=== PATIENT | male | born 1930 | race Caucasian/White ===

== ENCOUNTER 2018-01-24 08:22 | Inpatient (IN) | payer OTHER ==
[~2018-01-24] VITALS: Ht 165.1 cm; Wt 72.4 kg
--- NOTE | ~2018-01-24 | EKG ---
[facility] [place] [address] ELECTROCARDIOGRAM REPORT Name: ERICK HENDERSON Room #: 202-P ADM IN M.R.#: [id number] Admission: 01/24/18 Attend Phys: John Thorne MD Discharge: Date of : [birth year] Report #: [id number] THIS REPORT FOR: //name// [facility] ED Test Date: 2018-01-24 Test Time: 08:28:13 Pat Name: ERICK HENDERSON Department: Room: Gender: M Tarper: AT : 1930 Requested By: Krystin Coyle Order Number: [id number] MD: Kaleb Chan Measurements Intervals Ayer Rate: 59 P: -17 IN: 274 QRS: -1 QRSD: 110 T: 69 QT: 430 QTc: 426 Interpretive Statements Sinus rhythm Prolonged IN interval Compared to ECG 07/09/2008 08:49:27 First degree AV block now present T-wave abnormality no longer present Electronically Signed On 01-25-2018 8:38:11 CDT by Kaleb Chan [email or web address] <ELECTRONICALLY SIGNED> By: Kaleb Chan MD, [facility] 07/12/08 [phone] Kaleb Chan MD, [facility] /EPI
[2018-01-24 08:23] VITALS: BP 184/62
[2018-01-24 09:00] LABS: ABSOLUTE NEUTROPHILS 2.9 thou/uL (1.4-8.2); EOSINOPHILS 3.2 % (0.0-3.0); HEMATOCRIT 26.9 % (42.0-52.0); HEMOGLOBIN 9.8 gm/dL (14.0-18.0); LYMPHOCYTES 16.3 % (24.0-44.0); MCH 31.8 pg (26.0-34.0); MCHC 36.4 g/dL (28.0-37.0); MCV 87.4 fL (80.0-100.0); MONOCYTES 7.9 % (1.0-8.0); PLATELET COUNT 221 thou/uL (150-400); POLYS 71.6 % (36.0-66.0); RBC 3.07 mil/uL (4.50-6.00); RDW 13.3 % (10.5-14.5); WBC 4.1 thou/uL (4.0-11.0)
[2018-01-24 09:07] LABS: ANION GAP 10 mmol/L (7-16); BUN 57 mg/dL (7-18); CALCIUM 8.8 mg/dL (8.5-10.1); CHLORIDE 105 mmol/L (98-107); CO2 25 mmol/L (21-32); GLUCOSE 171 mg/dL (74-106); POTASSIUM 3.5 mmol/L (3.5-5.1); SODIUM 140 mmol/L (136-145)
[2018-01-24 09:16] LABS: TROPONIN-I <0.06 ng/mL (<0.06)
[2018-01-24] MEDS ORDERED: LEVOXYL50 MCG PO (10:30)
[2018-01-24] MEDS ORDERED: LISINOPRIL5 MG PO (10:31)
[2018-01-24] MEDS ORDERED: HYDROCHLOROTHIA25 M2 PO (10:31)
[2018-01-24 14:21] VITALS: BP 150/61
[2018-01-24 15:36] VITALS: BP 133/56
[2018-01-24 21:33] VITALS: BP 144/53
[2018-01-24 23:57] VITALS: BP 144/583
[2018-01-25 04:55] VITALS: BP 146/66
[2018-01-25 07:29] VITALS: BP 162/82
[2018-01-25 09:30] VITALS: BP 162/82
== END 2018-01-25 10:15 | disposition home or self-care (01) | DRG 562 ==
LOC: ER 08:22 → EROBS 09:57 → 2N 09:57 → ENTRNSPT 01-25 10:04 → EDTRNSPTSTS 01-25 10:06 → 2N 01-25 10:15
PROVIDERS: Emergency Medicine
PROC: 2W3JX1Z Immobilization of Right Finger using Splint (ICD-10-PCS; principal; 2018-01-25)
DX: S62.606A Fracture of unspecified phalanx of right little finger, initial encounter for closed fracture (principal); E43 Unspecified severe protein-calorie malnutrition; N17.9 Acute kidney failure, unspecified; N18.4 Chronic kidney disease, stage 4 (severe); M19.90 Unspecified osteoarthritis, unspecified site; S51.802A Unspecified open wound of left forearm, initial encounter; E03.9 Hypothyroidism, unspecified; I12.9 Hypertensive chronic kidney disease with stage 1 through stage 4 chronic kidney disease, or unspecified chronic kidney disease; Z98.42 Cataract extraction status, left eye; Z98.41 Cataract extraction status, right eye; Z88.6 Allergy status to analgesic agent; Z88.8 Allergy status to other drugs, medicaments and biological substances; Z68.26 Body mass index [BMI] 26.0-26.9, adult; W01.0XXA Fall on same level from slipping, tripping and stumbling without subsequent striking against object, initial encounter; Y93.89 Activity, other specified; Y92.89 Other specified places as the place of occurrence of the external cause; Y99.8 Other external cause status
CPT/HCPCS: 10081